=== PATIENT | female | born 1990 | race Caucasian/White ===

== ENCOUNTER 2016-09-20 19:54 | Emergency (ER) | payer OTHER ==
[~2016-09-20] VITALS: Ht 144.8 cm; Wt 63.5 kg
--- NOTE | ~2016-09-20 | CR72 ---
[facility] A Service of [facility] RADIOLOGY TEXT RESULTS PATIENT: HUMERA SUBRAMANIAN LOCATION: [facility] : [birth year] UNIT #: [id number] AGE: [address]: Mark Martinez DO SEX: F ORDER DR: [id number] [facility] [address] [place], [place] [address] [id number] E MR#: [id number] Acc #: [id number] NAME: HUMERA SUBRAMANIAN : 1990 SEX: F STUDY DATE/TIME: 09/20/2016 21:14 UNIT: [facility] ROOM: STUDY DESCRIPTION: CR Chest Single View Portable Attending Physician: Mark Martinez D.O. Ordering Physician: Mark Martinez D.O. Primary Care Physician: No Primary Care Physician MEDICAL IMAGING REPORT This report is preliminary unless electronic signature is present EXAM Portable chest, HISTORY Congestion today. Incoherent. Drug overdose today. FINDINGS The cardiac size and pulmonary vascularity are normal. No infiltrates or effusions. Mild right lower thoracic curve. IMPRESSION No acute findings. Dictated by... Yohannes Caballero M.D. THIS IS AN ELECTRONICALLY VERIFIED REPORT Yohannes Caballero M.D. at 09/21/2016 11:45 PM DFL/christel TD: 09/21/2016 08:50 JOB #: [id number] MEDICAL IMAGING REPORT Page 1 of 1 COPY
[~2016-09-20 19:54] MED LIST: CIPRO PO; NO MEDICATIONS; PYRIDIUM PO; VICODIN 5/1 TAB 5/50 PO
== END 2016-09-21 00:27 | disposition home or self-care (01) ==
LOC: CED 19:54
DX: T40.1X1A Poisoning by heroin, accidental (unintentional), initial encounter (principal); Z88.0 Allergy status to penicillin
CPT/HCPCS: 71010; 99284